=== PATIENT | female | born 1985 | race Caucasian/White ===

== ENCOUNTER 2018-10-30 09:46 | Inpatient (IN) | payer BC ==
[~2018-10-30] VITALS: Ht 167.6 cm; Wt 75.5 kg
[~2018-10-30 09:46] MED LIST: DOCU-144 PO; HYDR-3601 PO; Work Note
[2018-10-30 11:27] VITALS: Ht 167.6 cm; Wt 75.5 kg
--- NOTE | 2018-10-30 11:35 | HP ---
Date/Time of Note Date/Time of Note DATE: 10/30/18 TIME: 11:35 Assessment/Plan VTE Prophylaxis Pharmacological prophylaxis: NA/contraindicated Pharm contraindication: low risk/ambulating Assessment/Plan Hospital Course 32-year-old female with no significant comorbidities who presented to the local emergency room with abdominal pain who was found to have evidence of cholelith iasis and possible underlying choledocholithiasis, who was transferred to [facility] for further evaluation. 1. Cholelithiasis. ? Choledocholithiasis. N.p.o. Continue pain control. Continue IV fluids. MRCP for evaluation of choledocholithiasis. Obtain surgical consult and gastroenterology consult. Empiric antimicrobials. 2. Marijuana use. Obtain urine drug screen. Cessation advise. Plan: The patient will be admitted to inpatient medical surgical floor. The patient will be kept n.p.o. except for medications. The patient will be started on DVT prophylaxis. The patient will remain a full code. Activities will be as tolerated. The rest of the patient's management will be based on the clinical course, inputs from consultants, and the results of diagnostic studies. Based on the patient's clinical presentation, she most probably requires at least 2 midnights' stay for further management and evaluation of her clinical presentation. The patient was seen in collaboration with Dr. Hernandez. SLY/NANETTE Admit Date/Time Admit Date/Time Oct 30, 2018 at 10:48 Hx of Present Illness Reason for admission: Abdominal pain, cholelithiasis, questionable choledocholithiasis. Consultants 1. General Surgery. 2. Gastroenterology. This is a 32-year-old female with no significant past medical history. The patient went to the local emergency room because of epigastric pain that started around the midnight of 10/29/2018. The patient verbalized the pain was in the midepigastrium with radiation to bilateral chest and shoulders. She also felt nauseous. The patient denied any vomiting. The patient denied any febrile illness. She was complaining of profuse sweating. The patient verbalized that she soaked through 2 T-shirts. The patient denied any back pain, dysuria, or urgency. The patient denied any constipation or diarrhea. At the transferring facility, the patient underwent a right upper quadrant ultrasound that was showing gallstones with a dilated CBD measuring up to 8 mm with hepatic steatosis. The patient was treated with IV fluids, antiemetics, and IV antibiotics. The patient was transferred to [facility] for further evaluation because of insurance reasons. ROS Constitutional: diaphoresis, nausea Eyes: no complaints ENT: no complaints Respiratory: no complaints Cardiovascular: no complaints Gastrointestinal: pain, nausea Genitourinary: no complaints Musculoskeletal: no complaints Skin: no complaints Neurologic: no complaints Endocrine: no complaints Lymphatic: no complaints Psychological: no complaints Immunologic: no complaints PMH/Family/Social Past Medical History Medical History: no pertinent history Medications Current Medications Potassium Chloride/Sodium Chloride 1,000 ml @ 100 mls/hr Q10H IV ; Start 10/30/18 at 11:31; Status UNV IV Flush (NS 3 ml) 3 ml PER PROTOCOL IV ; Start 10/30/18 at 12:00; Status UNV Ondansetron HCl (Zofran Inj) 4 mg Q6H PRN IV NAUSEA/VOMITING; Start 10/30/18 at 12:00; Status UNV Acetaminophen (Tylenol Tab) 650 mg Q6H PRN PO .PAIN 1-3 OR TEMP; Start 10/30/18 at 12:00; Status UNV Acetaminophen/ Hydrocodone Bitart ([place] (5/325)) 1 tab Q6H PRN PO .MOD PAIN 4- 6; Start 10/30/18 at 12:00; Status UNV Morphine Sulfate (morphine) 2 mg Q4H PRN IV .SEVERE PAIN 7-10; Start 10/30/18 at 12:00; Status UNV Coded Allergies: No Known Allergy (Unverified , 10/30/18) Past Surgical History Past Surgical Hx: other (Tympanoplasty) Social History Works in kitchen. Alcohol Use: occasionally Smoking Status: Never smoker Drug Use: marijuana Exam/Review of Systems Exam Exam General: Adequately build 32 year-old female lying in bed in no apparent distress. HEENT: Normocephalic, atraumatic. Eyes: Anicteric sclerae, conjunctivae clear. ENT: Nasal septum midline, oral mucosa is dry. Neck supple, no JVD noticed. Respiratory: Bilaterally clear breath sounds. No use of accessory muscles of respiration. No adventitious breath sounds. Cardiovascular: S1, S2 heard. No murmurs or gallops. Abdomen: Soft and nondistended. Minimal epigastric tenderness. Left lower quadrant tenderness. Bowel sounds positive in all 4 quadrants. Genitourinary: Deferred. Extremities: No cyanosis, no clubbing, no edema. Peripheral pulses palpable. Neurologic: Cranial nerves II through XII grossly intact. The patient is awake, alert, and oriented. Skin: Normal skin turgor. No skin rashes. DAMIEN TOLENTINO NP Oct 30, 2018 11:35
[2018-10-30 11:51] VITALS: BP 106/63; PULSE 63; RESP 16
[2018-10-30] MEDS ORDERED: ACETAMINOPHEN 325 MG TAB PO PRN (12:00)
[2018-10-30] MEDS ORDERED: NACL 0.9% 3 ML SYG IV SCH (12:00)
[2018-10-30] MEDS ORDERED: HYDROCODONE/APAP (5/325) TAB PO PRN (12:00)
[2018-10-30] MEDS ORDERED: morphine 2 MG INJ IV PRN (12:00)
[2018-10-30] MEDS: PIPER-TAZO 3.375 GM IV (PMX) 100 ML IVPB SCH ×3 (12:48→23:54)
[2018-10-30] MEDS: NS + KCL 20 MEQ 1,000 ML IV SCH ×2 (12:48→21:31)
[2018-10-30 14:24] VITALS: BP 112/74; PULSE 62; RESP 16
--- NOTE | 2018-10-30 16:37 | CONS ---
Assessment/Plan Assessment/Plan Hospital Course (Demo Recall) Summary Assessment and Plan: Assessment: Cholelithiasis Dilated CBD Transaminitis (normal T. bilirubin) Epigastric pain Plan: MRCP- pending-if positive for choledocholithiasis will proceed with ERCP Monitor LFTs Fluids Pain management PRN Follow-up surgical recommendations Patient seen in collaboration with Dr. Alarcon CC: JAELYN ALARCON MD ; Consultation Date/Type/Reason Admit Date/Time Oct 30, 2018 at 10:48 Date of Consultation: Oct 30, 2018 Type of Consult Gastroenterology Reason for Consultation Rule out choledocholithiasis Date/Time of Note DATE: 10/30/18 TIME: 16:32 Hx of Present Illness This is a 32-year-old female with no significant past medical history to an outside hospital with complaints of nausea and epigastric pain there imaging was completed including RUQ ultrasound showing cholelithiasis with dilated common bile bile duct measuring up to 8 mm with hepatic steatosis. She was transferred to [facility] was determined for insurance reasons. GI has been consulted for delayed common bile duct rule out choledocholithiasis. Labs show transaminitis with a normal bilirubin and normal alkaline phos. An MRCP has been ordered and is currently pending based on results if positive for choledocholithiasis will proceed with ERCP. recommendations based on clinical course. Review of Systems: A 12 system, review was conducted and is negative except as noted in the HPI or here. Past Medical History Medical History: no pertinent history Medications Current Medications Potassium Chloride/Sodium Chloride 1,000 ml @ 100 mls/hr Q10H IV Last administered on 10/30/18at 12:48; Admin Dose 100 MLS/HR; Start 10/30/18 at 11:31 IV Flush (NS 3 ml) 3 ml PER PROTOCOL IV ; Start 10/30/18 at 12:00 Ondansetron HCl (Zofran Inj) 4 mg Q6H PRN IV NAUSEA/VOMITING; Start 10/30/18 at 12:00 Acetaminophen (Tylenol Tab) 650 mg Q6H PRN PO .PAIN 1-3 OR TEMP; Start 10/30/18 at 12:00 Acetaminophen/ Hydrocodone Bitart ([place] (5/325)) 1 tab Q6H PRN PO .MOD PAIN 4- 6; Start 10/30/18 at 12:00 Morphine Sulfate (morphine) 2 mg Q4H PRN IV .SEVERE PAIN 7-10 Last administered on 10/30/18at 14:42; Admin Dose 2 MG; Start 10/30/18 at 12:00 Piperacillin Sod/ Tazobactam Sod 100 ml @ 200 mls/hr Q6 IVPB Last administered on 10/30/18at 12:48; Admin Dose 200 MLS/HR; Start 10/30/18 at 12:30 Allergies: Coded Allergies: No Known Allergy (Unverified , 10/30/18) Past Surgical History Past Surgical Hx: other (Tympanoplasty) Social History Alcohol Use: occasionally Smoking Status: Never smoker Drug Use: marijuana Exam/Review of Systems Exam Vitals Vital Signs Date Temp Pulse Resp B/P (MAP) Pulse Ox O2 O2 Flow FiO2 Time Delivery Rate 10/30/18 97.7 62 16 112/74 97 14:24 (87) 10/30/18 Room Air 11:51 Exam PHYSICAL EXAMINATION: GENERAL: Well developed, well nourished, alert & oriented x 3, in no acute distress SKIN: No lesions HEAD: Normocephalic, atraumatic, no tenderness. EYES: Pupils equal reactive to light and accommodation, full extraocular movements, sclera clear, non-icteric, no discharge. EARS/NOSE AND THROAT: Ears normal, nose normal, oropharynx normal. NECK: Supple, no masses CHEST: Inspection within normal limits. CARDIOVASCULAR: Heart: Regular rate and rhythm RESPIRATORY: Lungs clear to auscultation GASTROINTESTINAL AND LIVER: Abdomen: Soft, epigastric tenderness, no guarding, no rebound tenderness, normoactive bowel sounds. Rectal: Deferred. EXTREMITIES: No cyanosis, clubbing or edema. Results Result Diagram: 10/30/18 1222 10/30/18 1228 Results 24hrs Laboratory Tests Test 10/30/18 12:22 10/30/18 12:28 White Blood Count 7.8 Red Blood Count 4.07 L Hemoglobin 11.9 L Hematocrit 35.9 L Mean Corpuscular Volume 88.2 Mean Corpuscular Hemoglobin 29.2 Mean Corpuscular Hemoglobin Concent 33.1 Red Cell Distribution Width 12.6 Platelet Count 287 Mean Platelet Volume 9.7 Immature Granulocytes % 0.400 Neutrophils % 66.4 Lymphocytes % 21.3 Monocytes % 10.5 Eosinophils % 0.9 Basophils % 0.5 Nucleated Red Blood Cells % 0.0 Immature Granulocytes # 0.030 Neutrophils # 5.2 Lymphocytes # 1.7 Monocytes # 0.8 Eosinophils # 0.1 Basophils # 0.0 Nucleated Red Blood Cells # 0.0 Hemoglobin A1c 4.7 Prothrombin Time 12.6 Prothrombin Time Ratio 1.0 INR International Normalized Ratio 0.93 Activated Partial Thromboplast Time 28.5 Sodium Level 139 Potassium Level 4.1 Chloride Level 109 Carbon Dioxide Level 26 Anion Gap 4 L Blood Urea Nitrogen 5 L Creatinine 0.53 Est Glomerular Filtrat Rate mL/min > 60 Glucose Level 104 Calcium Level 8.5 Phosphorus Level 3.3 Magnesium Level 1.8 Total Bilirubin 0.3 Direct Bilirubin 0.00 Indirect Bilirubin 0.3 Aspartate Amino Transf (AST/SGOT) 404 H Alanine Aminotransferase (ALT/SGPT) 242 H Alkaline Phosphatase 113 Total Protein 6.5 Albumin 3.2 L Globulin 3.30 H Albumin/Globulin Ratio 0.96 Serum HCG, Qualitative NEGATIVE Medications Medication Current Medications Potassium Chloride/Sodium Chloride 1,000 ml @ 100 mls/hr Q10H IV Last administered on 10/30/18 12:48; Admin Dose 100 MLS/HR; Start 10/30/18 at 11:31 IV Flush (NS 3 ml) 3 ml PER PROTOCOL IV ; Start 10/30/18 at 12:00 Ondansetron HCl (Zofran Inj) 4 mg Q6H PRN IV NAUSEA/VOMITING; Start 10/30/18 at 12:00 Acetaminophen (Tylenol Tab) 650 mg Q6H PRN PO .PAIN 1-3 OR TEMP; Start 10/30/18 at 12:00 Acetaminophen/ Hydrocodone Bitart ([place] (5/325)) 1 tab Q6H PRN PO .MOD PAIN 4- 6; Start 10/30/18 at 12:00 Morphine Sulfate (morphine) 2 mg Q4H PRN IV .SEVERE PAIN 7-10 Last administered on 10/30/18 14:42; Admin Dose 2 MG; Start 10/30/18 at 12:00 Piperacillin Sod/ Tazobactam Sod 100 ml @ 200 mls/hr Q6 IVPB Last administered on 10/30/18 12:48; Admin Dose 200 MLS/HR; Start 10/30/18 at 12:30 MARTHA WALKER Oct 30, 2018 16:37
[2018-10-30] MEDS: ONDANSETRON 4 MG INJ IV PRN (20:14)
[2018-10-30 20:23] VITALS: BP 106/65; PULSE 56; RESP 18
[2018-10-30] MEDS: HYDROmorphONE 1 MG/ML SYG IV PRN (22:29)
[2018-10-31] VITALS (17 sets, daily range): BP systolic 81–135; BP diastolic 48–86; PULSE 50–78; RESP 14–23
[2018-10-31] MEDS: NS + KCL 20 MEQ 1,000 ML IV SCH ×3 (00:33→10:57)
[2018-10-31] MEDS: HYDROmorphONE 1 MG/ML SYG IV PRN ×3 (04:00→22:47)
[2018-10-31] MEDS: PIPER-TAZO 3.375 GM IV (PMX) 100 ML IVPB SCH ×4 (05:53→21:07)
[2018-10-31] MEDS: ONDANSETRON 4 MG INJ IV PRN (11:46)
--- NOTE | 2018-10-31 11:59 | PN ---
Date/Time of Note Date/Time of Note DATE: 10/31/18 TIME: 11:56 Assessment/Plan VTE Prophylaxis Risk score (from Nsg)>0 risk: 1 SCD applied (from Nsg): Yes Pharmacological prophylaxis: NA/contraindicated Pharm contraindication: low risk/ambulating Lines/Catheters IV Catheter Type (from Nrsg): Peripheral IV Urinary Cath still in place: No Assessment/Plan Hospital Course SUBJECTIVE: Continues to complain of epigastric pain. OBJECTIVE: Physical Exam General: Adequately build 32 year-old female lying in bed in no apparent distress. HEENT: Normocephalic, atraumatic. Eyes: Anicteric sclerae, conjunctivae clear. ENT: Nasal septum midline, oral mucosa is dry. Neck supple, no JVD noticed. Respiratory: Bilaterally clear breath sounds. No use of accessory muscles of respiration. No adventitious breath sounds. Cardiovascular: S1, S2 heard. No murmurs or gallops. Abdomen: Soft and nondistended. Minimal epigastric tenderness. Left lower quad rant tenderness. Bowel sounds positive in all 4 quadrants. Genitourinary: Deferred. Extremities: No cyanosis, no clubbing, no edema. Peripheral pulses palpable. Neurologic: Cranial nerves II through XII grossly intact. The patient is awake, alert, and oriented. Skin: Normal skin turgor. No skin rashes. Labs & Vitals per chart ASSESSMENT & PLAN 32-year-old female with no significant comorbidities who presented to the local emergency room with abdominal pain who was found to have evidence of cholelithiasis and possible underlying choledocholithiasis, who was transferred to [facility] for further evaluation. 1. Symptomatic cholelithiasis. N.p.o. Continue pain control. Continue IV fluids. MRCP negative for choledocholithiasis. Being followed by gastroenterology. Empiric antimicrobials. 2. Transaminitis without hyperbilirubinemia. Management as per #1. 3. Marijuana use. Cessation advised. 4. Fluids, electrolytes, and nutrition. N.p.o. except for medications. IV fluids. 5. DVT prophylaxis. Bilateral SCDs. 6. Plan. Continue pain control. Continue IV fluids. Await surgical evaluation/intervention. The patient was seen in collaboration with Dr. Hernandez. Result Diagram: 10/31/18 0744 10/31/18 0744 Results 24hrs Laboratory Tests Test 10/30/18 12:22 10/30/18 12:28 10/30/18 17:30 10/31/18 07:44 White Blood Count 7.8 6.1 # Red Blood Count 4.07 L 3.78 L Hemoglobin 11.9 L 11.1 L Hematocrit 35.9 L 34.0 L Mean Corpuscular Volume 88.2 89.9 Mean Corpuscular 29.2 29.4 Hemoglobin Mean Corpuscular 33.1 32.6 Hemoglobin Concent Red Cell Distribution 12.6 12.8 Width Platelet Count 287 245 Mean Platelet Volume 9.7 10.1 Immature Granulocytes % 0.400 0.200 Neutrophils % 66.4 39.3 Lymphocytes % 21.3 47.0 Monocytes % 10.5 8.4 Eosinophils % 0.9 4.1 Basophils % 0.5 1.0 Nucleated Red Blood 0.0 0.0 Cells % Immature Granulocytes # 0.030 0.010 Neutrophils # 5.2 2.4 Lymphocytes # 1.7 2.9 Monocytes # 0.8 0.5 Eosinophils # 0.1 0.3 Basophils # 0.0 0.1 Nucleated Red Blood 0.0 0.0 Cells # Hemoglobin A1c 4.7 Prothrombin Time 12.6 Prothrombin Time Ratio 1.0 INR International 0.93 Normalized Ratio Activated 28.5 Partial Thromboplast Time Sodium Level 139 141 Potassium Level 4.1 4.1 Chloride Level 109 111 H Carbon Dioxide Level 26 25 Anion Gap 4 L 5 Blood Urea Nitrogen 5 L 5 L Creatinine 0.53 0.57 Est Glomerular Filtrat > 60 > 60 Rate mL/min Glucose Level 104 88 Calcium Level 8.5 8.1 L Phosphorus Level 3.3 3.0 Magnesium Level 1.8 1.7 Total Bilirubin 0.3 0.7 Direct Bilirubin 0.00 0.00 Indirect Bilirubin 0.3 0.7 Aspartate Amino 404 H 158 H Transf (AST/SGOT) Alanine 242 H 236 H Aminotransferase (ALT/SG PT) Alkaline Phosphatase 113 94 Total Protein 6.5 6.2 Albumin 3.2 L 3.2 L Globulin 3.30 H 3.00 Albumin/Globulin Ratio 0.96 1.06 Serum HCG, Qualitative NEGATIVE Urine Opiates Screen Positive Urine Barbiturates Negative Urine Amphetamines Negative Screen Urine Benzodiazepines Negative Screen Urine Cocaine Screen Negative Urine Cannabinoids Positive Triglycerides Level 71 Cholesterol Level 127 LDL Cholesterol, 54 Calculated HDL Cholesterol 59 Cholesterol/HDL Ratio 2.1 Amylase Level 44 Lipase 21 L Exam/Review of Systems Exam Vitals Vital Signs Date Temp Pulse Resp B/P (MAP) Pulse Ox O2 O2 Flow FiO2 Time Delivery Rate 10/31/18 66 105/54 08:48 (71) 10/31/18 98.2 14 100 08:00 10/30/18 Room Air 11:51 Intake and Output 10/30/18 10/30/18 10/31/18 1515:00 23:00 07:00 IntakeIntake Total 100 ml 400 ml 1550 ml OutputOutput Total 300 ml BalanceBalance 100 ml 100 ml 1550 ml Results Results 24hrs Laboratory Tests Test 10/30/18 12:22 10/30/18 12:28 10/30/18 17:30 10/31/18 07:44 White Blood Count 7.8 6.1 # Red Blood Count 4.07 L 3.78 L Hemoglobin 11.9 L 11.1 L Hematocrit 35.9 L 34.0 L Mean Corpuscular Volume 88.2 89.9 Mean Corpuscular 29.2 29.4 Hemoglobin Mean Corpuscular 33.1 32.6 Hemoglobin Concent Red Cell Distribution 12.6 12.8 Width Platelet Count 287 245 Mean Platelet Volume 9.7 10.1 Immature Granulocytes % 0.400 0.200 Neutrophils % 66.4 39.3 Lymphocytes % 21.3 47.0 Monocytes % 10.5 8.4 Eosinophils % 0.9 4.1 Basophils % 0.5 1.0 Nucleated Red Blood 0.0 0.0 Cells % Immature Granulocytes # 0.030 0.010 Neutrophils # 5.2 2.4 Lymphocytes # 1.7 2.9 Monocytes # 0.8 0.5 Eosinophils # 0.1 0.3 Basophils # 0.0 0.1 Nucleated Red Blood 0.0 0.0 Cells # Hemoglobin A1c 4.7 Prothrombin Time 12.6 Prothrombin Time Ratio 1.0 INR International 0.93 Normalized Ratio Activated 28.5 Partial Thromboplast Time Sodium Level 139 141 Potassium Level 4.1 4.1 Chloride Level 109 111 H Carbon Dioxide Level 26 25 Anion Gap 4 L 5 Blood Urea Nitrogen 5 L 5 L Creatinine 0.53 0.57 Est Glomerular Filtrat > 60 > 60 Rate mL/min Glucose Level 104 88 Calcium Level 8.5 8.1 L Phosphorus Level 3.3 3.0 Magnesium Level 1.8 1.7 Total Bilirubin 0.3 0.7 Direct Bilirubin 0.00 0.00 Indirect Bilirubin 0.3 0.7 Aspartate Amino 404 H 158 H Transf (AST/SGOT) Alanine 242 H 236 H Aminotransferase (ALT/SG PT) Alkaline Phosphatase 113 94 Total Protein 6.5 6.2 Albumin 3.2 L 3.2 L Globulin 3.30 H 3.00 Albumin/Globulin Ratio 0.96 1.06 Serum HCG, Qualitative NEGATIVE Urine Opiates Screen Positive Urine Barbiturates Negative Urine Amphetamines Negative Screen Urine Benzodiazepines Negative Screen Urine Cocaine Screen Negative Urine Cannabinoids Positive Triglycerides Level 71 Cholesterol Level 127 LDL Cholesterol, 54 Calculated HDL Cholesterol 59 Cholesterol/HDL Ratio 2.1 Amylase Level 44 Lipase 21 L Medications Medication Current Medications Potassium Chloride/Sodium Chloride 1,000 ml @ 100 mls/hr Q10H IV Last administered on 10/31/18at 10:57; Admin Dose 100 MLS/HR; Start 10/30/18 at 11:31 IV Flush (NS 3 ml) 3 ml PER PROTOCOL IV ; Start 10/30/18 at 12:00 Ondansetron HCl (Zofran Inj) 4 mg Q6H PRN IV NAUSEA/VOMITING Last administered on 10/31/18at 11:46; Admin Dose 4 MG; Start 10/30/18 at 12:00 Acetaminophen (Tylenol Tab) 650 mg Q6H PRN PO .PAIN 1-3 OR TEMP; Start 10/30/18 at 12:00 Acetaminophen/ Hydrocodone Bitart ([place] (5/325)) 1 tab Q6H PRN PO .MOD PAIN 4- 6; Start 10/30/18 at 12:00 Piperacillin Sod/ Tazobactam Sod 100 ml @ 200 mls/hr Q6 IVPB Last administered on 10/31/18 11:41; Admin Dose 200 MLS/HR; Start 10/30/18 at 12:30 Hydromorphone HCl (Dilaudid) 1 mg Q4H PRN IV SEVERE PAIN LEVEL 7-10 Last administered on 10/31/18 09:17; Admin Dose 1 MG; Start 10/30/18 at 21:00 DAMIEN TOLENTINO NP Oct 31, 2018 11:59
--- NOTE | 2018-10-31 16:07 | PN ---
Date/Time of Note Date/Time of Note DATE: 10/31/18 TIME: 16:01 Assessment/Plan VTE Prophylaxis Risk score (from Ns)>0 risk: 1 SCD applied (from Ns): Yes SCD contraindicated: low risk/ambulating Pharmacological prophylaxis: NA/contraindicated Pharm contraindication: low risk/ambulating Lines/Catheters IV [facility]from [facility] Peripheral IV Urinary Cath still in place: No Assessment/Plan Hospital Course Summary Assessment and Plan: Assessment: Cholelithiasis Dilated CBD -MRCP- MRCP negative for biliary dilation or evidence of choledocholithiasis . No evidence of acute cholecystitis there is noted cholelithiasis Transaminitis (normal T. bilirubin)- trending down Epigastric pain Plan: Ok from GI point of view to start clear liquid diet Follow-up surgical recommendations-plan for cholecystectomy near future Monitor labs- hep panel pending Patient seen in collaboration with Dr. Alarcon Subjective: Course reviewed with nursing staff Patient interviewed and examined All labs, imaging and other results reviewed The patient states she is feeling better, no c/o n/v. Abd pain has improved Patient states she is sleeping most of the day. Discussed results of MRCP and labs- patient verbalized understanding Exam PHYSICAL EXAMINATION: GENERAL: Well developed, well nourished, alert & oriented x 3, in no acute distress SKIN: No lesions HEAD: Normocephalic, atraumatic, no tenderness. EYES: Pupils equal reactive to light and accommodation, full extraocular movements, sclera clear, non-icteric, no discharge. EARS/NOSE AND THROAT: Ears normal, nose normal, oropharynx normal. NECK: Supple, no masses CHEST: Inspection within normal limits. CARDIOVASCULAR: Heart: Regular rate and rhythm RESPIRATORY: Lungs clear to auscultation GASTROINTESTINAL AND LIVER: Abdomen: Soft, epigastric tenderness- improved, no guarding, no rebound tenderness, normoactive bowel sounds. Rectal: Deferred. EXTREMITIES: No cyanosis, clubbing or edema. Result Diagram: 10/31/18 0744 10/31/18 0744 Results 24hrs Laboratory Tests Test 10/30/18 17:30 10/31/18 07:44 10/31/18 13:08 Urine Opiates Screen Positive Urine Barbiturates Negative Urine Amphetamines Screen Negative Urine Benzodiazepines Screen Negative Urine Cocaine Screen Negative Urine Cannabinoids Positive White Blood Count 6.1 # Red Blood Count 3.78 L Hemoglobin 11.1 L Hematocrit 34.0 L Mean Corpuscular Volume 89.9 Mean Corpuscular Hemoglobin 29.4 Mean Corpuscular Hemoglobin Concent 32.6 Red Cell Distribution Width 12.8 Platelet Count 245 Mean Platelet Volume 10.1 Immature Granulocytes % 0.200 Neutrophils % 39.3 Lymphocytes % 47.0 Monocytes % 8.4 Eosinophils % 4.1 Basophils % 1.0 Nucleated Red Blood Cells % 0.0 Immature Granulocytes # 0.010 Neutrophils # 2.4 Lymphocytes # 2.9 Monocytes # 0.5 Eosinophils # 0.3 Basophils # 0.1 Nucleated Red Blood Cells # 0.0 Sodium Level 141 Potassium Level 4.1 Chloride Level 111 H Carbon Dioxide Level 25 Anion Gap 5 Blood Urea Nitrogen 5 L Creatinine 0.57 Est Glomerular Filtrat Rate mL/min > 60 Glucose Level 88 Calcium Level 8.1 L Phosphorus Level 3.0 Magnesium Level 1.7 Total Bilirubin 0.7 Direct Bilirubin 0.00 Indirect Bilirubin 0.7 Aspartate Amino Transf (AST/SGOT) 158 H Alanine Aminotransferase (ALT/SGPT) 236 H Alkaline Phosphatase 94 Total Protein 6.2 Albumin 3.2 L Globulin 3.00 Albumin/Globulin Ratio 1.06 Triglycerides Level 71 Cholesterol Level 127 LDL Cholesterol, Calculated 54 HDL Cholesterol 59 Cholesterol/HDL Ratio 2.1 Amylase Level 44 Lipase 21 L Hepatitis A Antibody Total POSITIVE H Hepatitis B Surface Antigen NEGATIVE Hepatitis B Core Total Antibody NEGATIVE Hepatitis C Antibody NEGATIVE Exam/Review of Systems Exam Vitals Vital Signs Date Temp Pulse Resp B/P (MAP) Pulse Ox O2 O2 Flow FiO2 Time Delivery Rate 10/31/18 98.8 63 14 105/56 98 14:00 (72) 10/30/18 Room Air 11:51 Intake and Output 10/30/18 10/30/18 10/31/18 1515:00 23:00 07:00 IntakeIntake Total 100 ml 400 ml 1550 ml OutputOutput Total 300 ml BalanceBalance 100 ml 100 ml 1550 ml Results Results 24hrs Laboratory Tests Test 10/30/18 17:30 10/31/18 07:44 10/31/18 13:08 Urine Opiates Screen Positive Urine Barbiturates Negative Urine Amphetamines Screen Negative Urine Benzodiazepines Screen Negative Urine Cocaine Screen Negative Urine Cannabinoids Positive White Blood Count 6.1 # Red Blood Count 3.78 L Hemoglobin 11.1 L Hematocrit 34.0 L Mean Corpuscular Volume 89.9 Mean Corpuscular Hemoglobin 29.4 Mean Corpuscular Hemoglobin Concent 32.6 Red Cell Distribution Width 12.8 Platelet Count 245 Mean Platelet Volume 10.1 Immature Granulocytes % 0.200 Neutrophils % 39.3 Lymphocytes % 47.0 Monocytes % 8.4 Eosinophils % 4.1 Basophils % 1.0 Nucleated Red Blood Cells % 0.0 Immature Granulocytes # 0.010 Neutrophils # 2.4 Lymphocytes # 2.9 Monocytes # 0.5 Eosinophils # 0.3 Basophils # 0.1 Nucleated Red Blood Cells # 0.0 Sodium Level 141 Potassium Level 4.1 Chloride Level 111 H Carbon Dioxide Level 25 Anion Gap 5 Blood Urea Nitrogen 5 L Creatinine 0.57 Est Glomerular Filtrat Rate mL/min > 60 Glucose Level 88 Calcium Level 8.1 L Phosphorus Level 3.0 Magnesium Level 1.7 Total Bilirubin 0.7 Direct Bilirubin 0.00 Indirect Bilirubin 0.7 Aspartate Amino Transf (AST/SGOT) 158 H Alanine Aminotransferase (ALT/SGPT) 236 H Alkaline Phosphatase 94 Total Protein 6.2 Albumin 3.2 L Globulin 3.00 Albumin/Globulin Ratio 1.06 Triglycerides Level 71 Cholesterol Level 127 LDL Cholesterol, Calculated 54 HDL Cholesterol 59 Cholesterol/HDL Ratio 2.1 Amylase Level 44 Lipase 21 L Hepatitis A Antibody Total POSITIVE H Hepatitis B Surface Antigen NEGATIVE Hepatitis B Core Total Antibody NEGATIVE Hepatitis C Antibody NEGATIVE Medications Medication Current Medications Potassium Chloride/Sodium Chloride 1,000 ml @ 100 mls/hr Q10H IV Last administered on 10/31/18at 10:57; Admin Dose 100 MLS/HR; Start 10/30/18 at 11:31 IV Flush (NS 3 ml) 3 ml PER PROTOCOL IV ; Start 10/30/18 at 12:00 Ondansetron HCl (Zofran Inj) 4 mg Q6H PRN IV NAUSEA/VOMITING Last administered on 10/31/18at 11:46; Admin Dose 4 MG; Start 10/30/18 at 12:00 Acetaminophen (Tylenol Tab) 650 mg Q6H PRN PO .PAIN 1-3 OR TEMP; Start 10/30/18 at 12:00 Acetaminophen/ Hydrocodone Bitart ([place] (5/325)) 1 tab Q6H PRN PO .MOD PAIN 4- 6; Start 10/30/18 at 12:00 Piperacillin Sod/ Tazobactam Sod 100 ml @ 200 mls/hr Q6 IVPB Last administered on 10/31/18at 11:41; Admin Dose 200 MLS/HR; Start 10/30/18 at 12:30 Hydromorphone HCl (Dilaudid) 1 mg Q4H PRN IV SEVERE PAIN LEVEL 7-10 Last administered on 10/31/18 09:17; Admin Dose 1 MG; Start 10/30/18 at 21:00 MARTHA WALKER Oct 31, 2018 16:07
[2018-10-31] MEDS ORDERED: BUPIVACAINE 0.5%/EPI (SDV) 30 ML INJ ONE (16:29)
[2018-10-31] MEDS ORDERED: LIDOCAINE 1% (MPF) 30 ML INJ ONE (16:29)
--- NOTE | 2018-10-31 16:37 | CONS ---
Assessment/Plan Assessment/Plan Assessment/Plan (Daily) Symptomatic cholelithiasis. No evidence of acute cholecystitis, however patient has significant pain syndrome from the gallstones. I think the patient will benefit from laparoscopic cholecystectomy during this admission. We discussed risks and benefits were discussed possible side effects, possible complications including but not limited to bleeding, infection, injury to other organs, anesthesia complication, patient understood risk and benefits and wished to proceed. Consultation Date/Type/Reason Admit Date/Time Oct 30, 2018 at 10:48 Date of Consultation: Oct 31, 2018 Type of Consult Surgical Date/Time of Note DATE: 10/31/18 TIME: 16:34 Hx of Present Illness his is a 32-year-old female with no significant past medical history to an outside hospital with complaints of nausea and epigastric pain there imaging was completed including RUQ ultrasound showing cholelithiasis with dilated common bile bile duct measuring up to 8 mm with hepatic steatosis. She was transferred to [facility] was determined for insurance reasons MRCP was performed that did not show eating defects in the common bile duct., Showed cholelithiasis without evidence of cholecystitis. LFTs were slightly elevated, however bilirubin was normal. During the observation the pain did not subside. Patient still complains of epigastric pain mostly on the right and left side radiating to the back. Constitutional: no complaints, improved Eyes: no complaints ENT: no complaints Respiratory: no complaints Cardiovascular: no complaints Gastrointestinal: pain Genitourinary: no complaints Musculoskeletal: no complaints Skin: no complaints Neurologic: no complaints Endocrine: no complaints Lymphatic: no complaints Psychological: no complaints, nl mood/affect Immunologic: no complaints Past Medical History Medical History: no pertinent history Medications Current Medications Potassium Chloride/Sodium Chloride 1,000 ml @ 100 mls/hr Q10H IV Last administered on 10/31/18at 10:57; Admin Dose 100 MLS/HR; Start 10/30/18 at 11:31 IV Flush (NS 3 ml) 3 ml PER PROTOCOL IV ; Start 10/30/18 at 12:00 Ondansetron HCl (Zofran Inj) 4 mg Q6H PRN IV NAUSEA/VOMITING Last administered on 10/31/18at 11:46; Admin Dose 4 MG; Start 10/30/18 at 12:00 Acetaminophen (Tylenol Tab) 650 mg Q6H PRN PO .PAIN 1-3 OR TEMP; Start 10/30/18 at 12:00 Acetaminophen/ Hydrocodone Bitart ([place] (5/325)) 1 tab Q6H PRN PO .MOD PAIN 4- 6; Start 10/30/18 at 12:00 Piperacillin Sod/ Tazobactam Sod 100 ml @ 200 mls/hr Q6 IVPB Last administered on 10/31/18at 11:41; Admin Dose 200 MLS/HR; Start 10/30/18 at 12:30 Hydromorphone HCl (Dilaudid) 1 mg Q4H PRN IV SEVERE PAIN LEVEL 7-10 Last administered on 10/31/18at 09:17; Admin Dose 1 MG; Start 10/30/18 at 21:00 Allergies: Coded Allergies: No Known Allergy (Unverified , 10/30/18) Past Surgical History Past Surgical Hx: other (Tympanoplasty) Social History Alcohol Use: occasionally Smoking Status: Never smoker Drug Use: marijuana Exam/Review of Systems Exam Vitals Vital Signs Date Temp Pulse Resp B/P (MAP) Pulse Ox O2 O2 Flow FiO2 Time Delivery Rate 10/31/18 98.8 63 14 105/56 98 14:00 (72) 10/30/18 Room Air 11:51 Intake and Output 10/30/18 10/30/18 10/31/18 1515:00 23:00 07:00 IntakeIntake Total 100 ml 400 ml 1550 ml OutputOutput Total 300 ml BalanceBalance 100 ml 100 ml 1550 ml Constitutional: alert, oriented, well developed Psych: no complaints, nl mood/affect Head: normocephalic, atraumatic Eyes: nl conjunctiva, EOMI, nl lids, nl sclera, PERRL ENMT: nl external ears & nose, nl lips & teeth, nl nasal mucosa & septum Neck: supple, non-tender Respiratory: clear to auscultation, normal air movement Cardiovascular: regular rate and rhythm, nl pulses Gastrointestinal: soft, nl liver, spleen, other (She also labs marked tenderness in the right upper quadrantIn the epigastrium) Musculoskeletal: nl extremities to inspection, nl gait and stance Extremities: normal pulses 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, nl mental status, nl speech, nl strength Skin: nl turgor; No rash or lesions Lymph: nl lymph nodes Results Result Diagram: 10/31/18 0744 10/31/18 0744 Results 24hrs Laboratory Tests Test 10/30/18 17:30 10/31/18 07:44 10/31/18 13:08 Urine Opiates Screen Positive Urine Barbiturates Negative Urine Amphetamines Screen Negative Urine Benzodiazepines Screen Negative Urine Cocaine Screen Negative Urine Cannabinoids Positive White Blood Count 6.1 # Red Blood Count 3.78 L Hemoglobin 11.1 L Hematocrit 34.0 L Mean Corpuscular Volume 89.9 Mean Corpuscular Hemoglobin 29.4 Mean Corpuscular Hemoglobin Concent 32.6 Red Cell Distribution Width 12.8 Platelet Count 245 Mean Platelet Volume 10.1 Immature Granulocytes % 0.200 Neutrophils % 39.3 Lymphocytes % 47.0 Monocytes % 8.4 Eosinophils % 4.1 Basophils % 1.0 Nucleated Red Blood Cells % 0.0 Immature Granulocytes # 0.010 Neutrophils # 2.4 Lymphocytes # 2.9 Monocytes # 0.5 Eosinophils # 0.3 Basophils # 0.1 Nucleated Red Blood Cells # 0.0 Sodium Level 141 Potassium Level 4.1 Chloride Level 111 H Carbon Dioxide Level 25 Anion Gap 5 Blood Urea Nitrogen 5 L Creatinine 0.57 Est Glomerular Filtrat Rate mL/min > 60 Glucose Level 88 Calcium Level 8.1 L Phosphorus Level 3.0 Magnesium Level 1.7 Total Bilirubin 0.7 Direct Bilirubin 0.00 Indirect Bilirubin 0.7 Aspartate Amino Transf (AST/SGOT) 158 H Alanine Aminotransferase (ALT/SGPT) 236 H Alkaline Phosphatase 94 Total Protein 6.2 Albumin 3.2 L Globulin 3.00 Albumin/Globulin Ratio 1.06 Triglycerides Level 71 Cholesterol Level 127 LDL Cholesterol, Calculated 54 HDL Cholesterol 59 Cholesterol/HDL Ratio 2.1 Amylase Level 44 Lipase 21 L Hepatitis A Antibody Total POSITIVE H Hepatitis B Surface Antigen NEGATIVE Hepatitis B Surface Antibody INDETERMINATE Hepatitis B Core Total Antibody NEGATIVE Hepatitis C Antibody NEGATIVE Medications Medication Current Medications Potassium Chloride/Sodium Chloride 1,000 ml @ 100 mls/hr Q10H IV Last admini stered on 10/31/18at 10:57; Admin Dose 100 MLS/HR; Start 10/30/18 at 11:31 IV Flush (NS 3 ml) 3 ml PER PROTOCOL IV ; Start 10/30/18 at 12:00 Ondansetron HCl (Zofran Inj) 4 mg Q6H PRN IV NAUSEA/VOMITING Last administered on 10/31/18at 11:46; Admin Dose 4 MG; Start 10/30/18 at 12:00 Acetaminophen (Tylenol Tab) 650 mg Q6H PRN PO .PAIN 1-3 OR TEMP; Start 10/30/18 at 12:00 Acetaminophen/ Hydrocodone Bitart ([place] (5/325)) 1 tab Q6H PRN PO .MOD PAIN 4- 6; Start 10/30/18 at 12:00 Piperacillin Sod/ Tazobactam Sod 100 ml @ 200 mls/hr Q6 IVPB Last administered on 10/31/18at 11:41; Admin Dose 200 MLS/HR; Start 10/30/18 at 12:30 Hydromorphone HCl (Dilaudid) 1 mg Q4H PRN IV SEVERE PAIN LEVEL 7-10 Last administered on 10/31/18at 09:17; Admin Dose 1 MG; Start 10/30/18 at 21:00 ELKE PAGAN MD Oct 31, 2018 16:37
--- NOTE | 2018-10-31 17:51 | PREAC ---
Date/Time of Note Date/Time of Note DATE: 10/31/18 TIME: 17:50 Anesthesia Eval and Record Evaluation Time Pre-Procedure Interview DATE: 10/31/18 TIME: 17:50 Age 32 Sex female NPO: 8 hrs Preoperative diagnosis cholelithiasis Planned procedure laparoscopic cholecystectomy Past Medical History Past Medical History: None Recreational drugs: Marijuana Surgery & Anesthesia Issues No known issue Meds Anticoagulation: No Beta Aida within 24 hr: No Reason Beta Aida not given: Pt. not on B-Aida Current Medications Potassium Chloride/Sodium Chloride 1,000 ml @ 100 mls/hr Q10H IV Last administered on 10/31/18at 10:57; Admin Dose 100 MLS/HR; Start 10/30/18 at 11:31 IV Flush (NS 3 ml) 3 ml PER PROTOCOL IV ; Start 10/30/18 at 12:00 Ondansetron HCl (Zofran Inj) 4 mg Q6H PRN IV NAUSEA/VOMITING Last administered on 10/31/18at 11:46; Admin Dose 4 MG; Start 10/30/18 at 12:00 Acetaminophen (Tylenol Tab) 650 mg Q6H PRN PO .PAIN 1-3 OR TEMP; Start 10/30/18 at 12:00 Acetaminophen/ Hydrocodone Bitart ([place] (5/325)) 1 tab Q6H PRN PO .MOD PAIN 4- 6; Start 10/30/18 at 12:00 Piperacillin Sod/ Tazobactam Sod 100 ml @ 200 mls/hr Q6 IVPB Last administered on 10/31/18at 11:41; Admin Dose 200 MLS/HR; Start 10/30/18 at 12:30 Hydromorphone HCl (Dilaudid) 1 mg Q4H PRN IV SEVERE PAIN LEVEL 7-10 Last administered on 10/31/18at 09:17; Admin Dose 1 MG; Start 10/30/18 at 21:00 Meds reviewed: Yes Allergies Coded Allergies: No Known Allergy (Unverified , 10/30/18) Allergies Reviewed: Yes Labs/Studies Labs Reviewed: Reviewed by anesthesiologist Result Diagram: 10/31/18 0744 10/31/18 0744 Laboratory Tests 10/31/18 07:44 test: Negative Pre-procedure Exam Last vitals Vital Signs Date Temp Pulse Resp B/P (MAP) Pulse Ox O2 O2 Flow FiO2 Time Delivery Rate 8/6/19 Simple 8.0 17:35 Mask 10/31/18 98.8 63 14 105/56 98 14:00 (72) Airway: Adequate mouth opening, Adequate thyromental dist Mallampati: Mallampati II Teeth: Normal Lung: Normal Heart: Normal ASA Physical Status ASA physical status: 1 Emergency: None Planned Anesthetic General/MAC: ETT Nerve block: TAP (bilateral) Planned Pain Management Single shot nerve block, Parenteral pain med Pre-operative Attestations Prior to commencing anesthesia and surgery, the patient was re-evaluated, there was verification of: *The patient's identity *The results of appropriate recent lab work and preoperative vital signs *The above evaluation not changing prior to induction *Anesthetic plan, risk benefits, alternative and complications discussed with patient/family; questions answered; patient/family understands, accepts and wishes to proceed. MELBA MARQUES MD Oct 31, 2018 17:51
[2018-10-31] MEDS ORDERED: MIDAZOLAM 1 MG/ML 2 ML INJ ONE (17:55)
[2018-10-31] MEDS ORDERED: FENTAnyl 50 MCG/ML VIAL ONE ×2 (17:55→19:11)
[2018-10-31] MEDS ORDERED: LIDOCAINE 2% (SDV) 5 ML INJ ONE (17:57)
[2018-10-31] MEDS ORDERED: ROCURONIUM 50 MG INJ ONE ×2 (17:57→18:01)
[2018-10-31] MEDS ORDERED: PROPOFOL 20 ML ONE (17:57)
[2018-10-31] MEDS ORDERED: SUCCINYLCHOLINE CHLORIDE 100 MG/5 ML SYG IV ONE (17:57)
[2018-10-31] MEDS ORDERED: SEVOFLURANE 15 MIN ONE (18:00)
[2018-10-31] MEDS ORDERED: ROPIVACAINE 0.5 % 30 ML VIAL ONE (18:02)
[2018-10-31] MEDS ORDERED: CEFAZOLIN 1 GM INJ ONE (18:14)
[2018-10-31] MEDS ORDERED: DEXAMETHASONE 4 MG/ML 5 ML INJ ONE (18:21)
[2018-10-31] MEDS ORDERED: ONDANSETRON 4 MG INJ ONE (18:21)
[2018-10-31] MEDS ORDERED: FAMOTIDINE 20 MG INJ ONE (18:21)
[2018-10-31] MEDS ORDERED: FENTAnyl 50 MCG/ML VIAL IV PRN (18:30)
[2018-10-31] MEDS ORDERED: ONDANSETRON 4 MG INJ IV PRN ×2 (18:30→19:30)
[2018-10-31] MEDS ORDERED: PROCHLORPERAZINE 10 MG INJ IV PRN (18:30)
[2018-10-31] MEDS ORDERED: DIPHENHYDRAMINE 50 MG INJ IV PRN ×2 (18:30→19:30)
[2018-10-31] MEDS ORDERED: HYDROmorphONE 1 MG/5 ML IV SYRINGE IV PRN ×3 (18:30)
[2018-10-31] MEDS ORDERED: MEPERIDINE 25 MG INJ IV PRN (18:30)
[2018-10-31] MEDS ORDERED: GLYCOPYRROLATE 0.4 MG INJ ONE (18:50)
[2018-10-31] MEDS ORDERED: NEOSTIGMINE 3 MG/3 ML SYRINGE ONE ×2 (18:50→19:02)
[2018-10-31] MEDS ORDERED: HYDROmorphONE 2 MG/ML SYG ONE (18:59)
--- NOTE | 2018-10-31 19:05 | OPR ---
Date/Time of Note Date/Time of Note DATE: 10/31/18 TIME: 19:02 Operative Report Procedure Date: Oct 31, 2018 Preoperative Diagnosis Cholelithiasis Postoperative Diagnosis Acute cholecystitis Operation/Procedure Performed Laparoscopic cholecystectomy with intraoperative fluorescent cholangiogram Surgeon see signature line Termite Exterminator Helper None Anesthesia Type: general Anesthesiologist: MELBA MARQUES MD Estimated Blood Loss: 10 - 50 ml's Transfusion none Specimen Gallbladder Grafts/Implants none Complications none Pt Condition Post Procedure: stable Disposition: PACU Indications Was admitted through emergency room. The initial work-up revealed dilated common bile ducts however MRCP was negative for common bile duct stones. Patient continued to have severe right upper quadrant pain was taken to the operating room with the diagnosis of symptomatic cholelithiasis biliary colic. Procedure Description The risks, benefits and alternatives of the procedure were discussed with the patient and informed consent was obtained. We discussed with the patient and the family possibility of the bleeding, infection, injury to other organs, bile ducts injury, retained stones and necessity of the ERCP. OPERATIVE PROCEDURE: The patient was brought to the operating room and placed supine. IV antibiotics were given. Venodynes were placed to both lower extremities. General endotracheal anesthesia was achieved. The abdomen was prepped and draped in a sterile fashion. 0.25% Marcaine with epinephrine was used for local anesthesia. A small infraumbilical incision was made and a Veress needle inserted. Intraperitoneal position was confirmed using the saline drop test. Carbon dioxide pneumoperitoneum was achieved with a good filling pressure to 15 mmHg. The 30-degree 5 mm video laparoscope was inserted through a 5-mm trocar placed in the right paramedian position just next to umbi licus. There was no evidence of injury after Veress needle and trocar insertion. Additional trocars were placed, a 12-mm subxiphoid trocar, and two 5-mm trocars at the right upper quadrant. The gallbladder was grasped at the fundus and elevated cephalad. Inflamed with a lot of edema. The area at Calot's triangle was dissected using blunt and electrocautery dissection, and critical view was obtained. ICG imaging confirmed the correct identification of the biliary ducts. Clip placed across the cystic duct and artery. The cystic duct was clipped additionally and then divided. The cystic artery was clipped x2 additionally. The gallbladder was dissected off the liver using electrocautery dissection and removed using an EndoCatch bag. The trocars were removed under direct visualization and no bleeding seen at the trocar sites. The pneumoperitoneum was reduced and the subxiphoid and umbilical trocar sites closed with 0 Vicryl to reapproximate the fascia. The trocar sites were reapproximated with 4-0 Monocryl sutures. Steri-Strips and sterile dressings were applied. The sponge and instrument counts were reported as correct x2. Estimated blood loss was 5 cc. The patient was woken from anesthesia, extubated, and transferred to the recovery room in stable condition. By the end of the procedure, the instrument and sponge counts were correct x2. STATEMENT OF PRESENCE: Dr. aPgan was present for the entire case. The gallbladder was found to be ELKE PAGAN MD Oct 31, 2018 19:05
--- NOTE | 2018-10-31 19:19 | PAC ---
Date/Time of Note Date/Time of Note DATE: 10/31/18 TIME: 19:18 Post-Anesthesia Notes Post-Anesthesia Note Last documented vital signs Vital Signs Date Temp Pulse Resp B/P (MAP) Pulse Ox O2 O2 Flow FiO2 Time Delivery Rate 10/31/18 97.9 19:12 10/31/18 Simple 8.0 17:35 Mask 10/31/18 63 14 105/56 98 14:00 (72) Activity: WNL Respiratory function: WNL Cardiovascular function: WNL Mental status: Baseline Pain reasonably controlled: Yes Hydration appropriate: Yes Nausea/Vomiting absent: Yes Comments BP: 135/76 HR: 67 RR: 15 T: 97.9 SaO2: 97% MELBA MARQUES MD Oct 31, 2018 19:19
[2018-10-31] MEDS ORDERED: DIPHENHYDRAMINE 25 MG CAP PO PRN (19:30)
[2018-10-31] MEDS ORDERED: morphine 2 MG INJ IV PRN (19:30)
[2018-10-31] MEDS ORDERED: ACETAMINOPHEN 325 MG TAB PO PRN (19:30)
[2018-10-31] MEDS ORDERED: KETOROLAC 30 MG INJ IV PRN (19:30)
[2018-10-31] MEDS ORDERED: METOCLOPRAMIDE 10 MG INJ IV PRN (19:30)
[2018-10-31] MEDS ORDERED: IBUPROFEN 600 MG TAB PO PRN (19:30)
[2018-10-31] MEDS: D5-NS + KCL 20 MEQ 1,000 ML IV SCH (21:06)
[2018-11-01] MEDS: PIPER-TAZO 3.375 GM IV (PMX) 100 ML IVPB SCH ×3 (01:00→13:12)
[2018-11-01 02:00] VITALS: BP 116/71; PULSE 61; RESP 17
[2018-11-01] MEDS: HYDROmorphONE 1 MG/ML SYG IV PRN ×3 (03:20→14:02)
[2018-11-01] MEDS: D5-NS + KCL 20 MEQ 1,000 ML IV SCH (05:01)
[2018-11-01 08:24] VITALS: BP 147/81; PULSE 61; RESP 16
--- NOTE | 2018-11-01 10:17 | PDOCDIS ---
Discharge Instructions CONDITION [id number] Patient Condition: [id number] Stable HOME CARE INSTRUCTIONS: [id number] Diet Instructions: [id number] Regular FOLLOW UP/APPOINTMENTS Follow-up Plan Raciel Woody MD Specialty: General Surgery Office Address [address] [place] [address]. [address] [place] [address] Office OTHER ORDERS: Other Orders: 1. Regular diet as tolerated. 2. Keep incisions clean and dry. May shower. Avoid tub baths and swimming for 2 weeks. Use mild soap and pat dry the incisions. 3. Take medications as needed for pain. 4. Call the surgeon or go to the nearest ER if you have severe abdominal pain despite pain medications. 5. Call the surgeon or go to the nearest ER if you notice any bleeding or secretions coming out of the incision sites. Also call the surgeon if you notice any blood in stool, if you have persistent fevers, or any other unusual signs or symptoms. 6. Follow-up with the surgeon Dr. Woody in 7 days for incision check. 7. Avoid heavy lifting [more than 10-15 pounds] for 4 weeks. SCHOOL/WORK RELEASE May return to School/Work on: Nov 06, 2018 May return to School/Work with: With Restrictions (No heavy lifting >15 lbs until 12/02/2018) DAMIEN TOLENTINO NP Nov 01, 2018 10:17
--- NOTE | 2018-11-01 10:45 | DS ---
Date/Time of Note Date/Time of Note DATE: 11/01/18 TIME: 10:45 Discharge Summary Admission/Discharge Info Admit Date/Time Oct 30, 2018 at 10:48 Discharge Diagnosis 1. Acute cholecystitis. Status post laparoscopic cholecystectomy on 10/31/2018. 2. Transaminitis without hyperbilirubinemia. 3. Marijuana abuse. Patient Condition: Stable Consults 1. Rajat Alarcon MD Gastroenterology. 2. Raciel Woody MD, General Surgery. Procedures Operative Report Procedure Date: Oct 31, 2018 Preoperative Diagnosis Cholelithiasis Postoperative Diagnosis Acute cholecystitis Operation/Procedure Performed Laparoscopic cholecystectomy with intraoperative fluorescent cholangiogram. MRCP IMPRESSION: Cholelithiasis. No evidence of acute cholecystitis. No biliary dilatation or evidence of choledocholithiasis. Hx of Present Illness Reason for admission: Abdominal pain, cholelithiasis, questionable choledocholithiasis. Consultants 1. General Surgery. 2. Gastroenterology. This is a 32-year-old female with no significant past medical history. The patient went to the local emergency room because of epigastric pain that started around the midnight of 10/29/2018. The patient verbalized the pain was in the midepigastrium with radiation to bilateral chest and shoulders. She also felt nauseous. The patient denied any vomiting. The patient denied any febrile illness. She was complaining of profuse sweating. The patient verbalized that she soaked through 2 T-shirts. The patient denied any back pain, dysuria, or urgency. The patient denied any constipation or diarrhea. At the transferring facility, the patient underwent a right upper quadrant ultrasound that was showing gallstones with a dilated CBD measuring up to 8 mm with hepatic steatosis. The patient was treated with IV fluids, antiemetics, and IV antibiotics. The patient was transferred to [facility] for further evaluation because of insurance reasons. Hospital Course The patient was admitted to inpatient setting. She was kept n.p.o. She was maintained on IV fluids. She was provided with adequate pain control. She was started on empiric antimicrobials for suspected underlying acute cholecystitis. The patient underwent an MRCP to evaluate for any underlying choledocholithiasis. The patient's MRCP was negative for any choledocholithiasis. Gastroenterology and general surgery was following the patient. The patient was taken to the OR on 10/31/2018 and the patient underwent a laparoscopic cholecystectomy. Intraoperative findings showed inflamed gallbladder with a lot of edema. The patient was started on a clear liquid diet postoperatively and the patient's diet was advanced as tolerated to a regular consistency diet without any significant gastrointestinal symptoms. The patient was encouraged on frequent ambulation and frequent use of incentive spirometry. The patient is a relatively healthy female with no other significant past medical history. The patient's transaminitis improved over the patient's hospital course. The patient's hepatitis panel was negative other than positive hepatitis A antibody (IgM negative). The patient is a current marijuana user. The patient's urine drug screen was positive for marijuana. The patient was advised on cessation. The patient had a stable hospital course. The patient was cleared by consultants to be discharged. Discharge Instructions 1. Regular diet as tolerated. 2. Keep incisions clean and dry. May shower. Avoid tub baths and swimming for 2 weeks. Use mild soap and pat dry the incisions. 3. Take medications as needed for pain. 4. Call the surgeon or go to the nearest ER if you have severe abdominal pain despite pain medications. 5. Call the surgeon or go to the nearest ER if you notice any bleeding or secretions coming out of the incision sites. Also call the surgeon if you notice any blood in stool, if you have persistent fevers, or any other unusual signs or symptoms. 6. Follow-up with the surgeon Dr. Woody in 7 days for incision check. 7. Avoid heavy lifting [more than 10-15 pounds] for 4 weeks. The patient verbalized understanding of her discharge instructions. At this time I would like to thank all the consultants for seeing the patient, doing the necessary procedures, and providing clinical recommendations. The patient was seen in collaboration with Dr. Hernandez. [facility] [employer] [Work Note] No Conflict Check This is to certify that this patient was admitted to [facility] from 10/30/2018 to 11/01/2018. She may return back to work on 11/06/2018 with restriction of no heavy lifting more than 15 pounds until 12/02/2018. Prov:DAMIEN TOLENTINO NP 11/01/18 Docusate Sodium* (Colace*) 100 Mg Capsule, 100 MG PO BID, #20 CAP Prov:DAMIEN TOLENTINO NP 11/01/18 Hydrocodone Bit-Acetaminophen (Hydrocodone Bit-APAP) 5-325MG Tablet, 1 TAB PO Q6H PRN for .MOD PAIN 4-6, #10 TAB Prov:DAMIEN TOLENTINO NP 11/01/18 Follow-up Plan Raciel Woody MD Specialty: General Surgery Office Address [address] [place] [address]. [address] [place] [address] Office Primary Care Provider Not On Staff Doctor Time spent on discharge: > 30 minutes Pending Labs Laboratory Tests Test 10/31/18 13:08 11/01/18 05:32 Hepatitis A Antibody Total POSITIVE (NEGATIVE) Hepatitis B Surface NEGATIVE (NEGATIVE) Antigen Hepatitis B Surface INDETERMINATE (NEGATIVE) Antibody Hepatitis B Core NEGATIVE (NEGATIVE) Total Antibody Hepatitis C Antibody NEGATIVE (NEGATIVE) White Blood Count 9.8 10^3/ul (4.8-10.8) Red Blood Count 4.17 10^6/ul (4.20-5.40) Hemoglobin 12.2 g/dl (12.0-16.0) Hematocrit 36.5 % (37.0-47.0) Mean Corpuscular Volume 87.5 fl (82.0-101.0) Mean Corpuscular 29.3 pg (29.0-33.0) Hemoglobin Mean Corpuscular 33.4 g/dl (32.0-37.0) Hemoglobin Concent Red Cell Distribution 12.3 % (11.5-14.5) Width Platelet Count 281 10^3/UL (140-415) Mean Platelet Volume 10.2 fl (7.4-10.4) Immature Granulocytes % 0.500 % (0.001-0.429) Neutrophils % 85.0 % (39.0-77.0) Lymphocytes % 10.0 % (15.0-51.0) Monocytes % 4.3 % (0.0-11.0) Eosinophils % 0.0 % (0.0-7.0) Basophils % 0.2 % (0.0-2.0) Nucleated Red Blood Cells 0.0 /100WBC (0.0-0.0) % Immature Granulocytes # 0.050 10^3/ul (0.0-0.031) Neutrophils # 8.4 10^3/ul (1.6-7.5) Lymphocytes # 1.0 10^3/ul (0.8-2.9) Monocytes # 0.4 10^3/ul (0.3-0.9) Eosinophils # 0.0 10^3/ul (0.0-0.5) Basophils # 0.0 10^3/ul (0.0-0.1) Nucleated Red Blood Cells 0.0 10^3/ul (0.0-0.0) # Sodium Level 139 mmol/L (135-144) Potassium Level 4.1 mmol/L (3.5-5.1) Chloride Level 107 mmol/L (97-110) Carbon Dioxide Level 23 mmol/L (21-31) Anion Gap 9 (5-13) Blood Urea Nitrogen 4 mg/dl (7-20) Creatinine 0.52 mg/dl (0.44-1.00) Est Glomerular Filtrat > 60 mL/min (>60) Rate mL/min Glucose Level 146 mg/dl (70-220) Calcium Level 8.8 mg/dl (8.4-10.2) Phosphorus Level 3.3 mg/dl (2.5-4.9) Magnesium Level 1.5 mg/dl (1.7-2.5) Total Bilirubin 0.5 mg/dl (0.2-1.3) Direct Bilirubin 0.00 mg/dl (0.00-0.20) Indirect Bilirubin 0.5 mg/dl (0-1.1) Aspartate Amino 68 IU/L (15-46) Transf (AST/SGOT) Alanine 168 IU/L (13-69) Aminotransferase (ALT/SGPT) Alkaline Phosphatase 95 IU/L (42-121) Total Protein 6.7 g/dl (6.1-8.1) Albumin 3.4 g/dl (3.3-4.9) Globulin 3.30 g/dl (1.3-3.2) Albumin/Globulin Ratio 1.03 DAMIEN TOLENTINO NP Nov 01, 2018 10:45
[2018-11-01] MEDS ORDERED: MAGNESIUM SULFATE 2 GM/50 ML 50 ML IVPB ONE (11:30)
[2018-11-01 14:00] VITALS: BP 118/65; PULSE 65; RESP 16
== END 2018-11-01 15:48 | disposition home or self-care (01) | DRG 419 ==
LOC: PP2 10:48
PROVIDERS: ADMIT Internal Medicine; ATTEND Internal Medicine
PROC: BF13YZZ Fluoroscopy of Gallbladder and Bile Ducts using Other Contrast (ICD-10-PCS; 2018-10-31)
PROC: 0FT44ZZ Resection of Gallbladder, Percutaneous Endoscopic Approach (ICD-10-PCS; principal; 2018-10-31 17:00)
DX: K80.00 Calculus of gallbladder with acute cholecystitis without obstruction (principal); K76.0 Fatty (change of) liver, not elsewhere classified; K83.8 Other specified diseases of biliary tract; F12.10 Cannabis abuse, uncomplicated
CPT/HCPCS: 74181; 80053; 80061; 80307; 82150; 83036; 83690; 83735; 84100; 84703; 85025; 85610; 85730; 86704; 86706; 86708; 86709; 86803; 87081; 87340; 88304; J0690; J1100; J1170; J1200; J1885; J2250; J2270; J2405; J2543; J2710; J2795; J3010; J3475; J3480